=== PATIENT | male | born 1955 | race American Indian/Alaskan Native ===

== ENCOUNTER 2019-07-01 15:22 | Emergency (ER) | payer MEDICARE ==
[~2019-07-01 15:22] MED LIST: AMIDATE IV ONE; ZEMURON IV ONE
[2019-07-01] MEDS ORDERED: NACL 0.9% 1000 ML IV ONE (15:34)
[2019-07-01] MEDS ORDERED: SUBLIMAZE IV PRN (15:37)
[2019-07-01] MEDS ORDERED: ARTIFICIAL TEARS OPHTH OINT OU PRN (15:37)
[2019-07-01] MEDS ORDERED: VASELINE LIP THERAPY TP PRN (15:37)
[2019-07-01] MEDS ORDERED: ATIVAN IV PRN (15:37)
--- NOTE | 2019-07-01 15:50 | Emergency Department Report ---
ED General Adult HPI - General Chief complaint: Altered Mental Status Stated complaint: UNK Time Seen by Provider: 07/01/19 15:34 Source: EMS ( EMS documentation not available at time of chart dictation ) Mode of arrival: Stretcher Limitations: Altered Mental Status, Physical Limitation - History of Present Illness Initial comments: History entirely obtained from verbal report from nursing team. The patient is reportedly a 64-year-old -Italian gentleman, on dialysis, upper extremities dialysis access, history of stroke (we do not know when, and we do not know with deficits). 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 His exact last known well time is not known. Patient had approximately 300 mL of coffee-ground emesis. I was called to emergently evaluate the patient for emesis, altered mental status, and inability to protect airway. The patient had a finger stick of 172. Upon initial evaluation, the patient was altered, hypoxic to 82% on nonrebreather, and actively vomiting. Patient required emergent intubation. Please see the intubation note for details of the procedure. Postintubation, patient's blood pressure dropped to the 70s, and now is in the 120s. He was found to have a core temperature 95.2 degrees. Simultaneous cold sepsis and code stroke are called overhead. Given the patient's emergent presentation, he will need emergent and expedient diagnostics to exclude potentially time sensitive diagnoses. Therefore, he will be emergently and administratively consented by myself for noncontrast CT scan of the brain, an emergency CT angiogram of the head and neck to exclude large vessel occlusion, and CT scan of the abdomen and pelvis to exclude acute surgical emergency. The meantime, he'll be started on active patient rewarming, he'll be given desmopressin, Protonix, and ceftriaxone. As his diagnostics results, we will further tailor his management. The patient is currently being evaluated by stroke neurology, Dr. Prater We will also discussed with nephrology on-call, critical care, and gastroenterology. -: This afternoon Quality: other Consistency: other Improves with: other Worsens with: other - Related Data Allergies Allergy/AdvReac Type Severity Reaction Status Date / Time No Known Allergies Allergy Unverified 07/01/19 17:14 ED Review of Systems ROS: Stated complaint: UNK Other details as noted in HPI Comment: Unobtainable due to pts medical conditions ED Physical Exam - General Limitations: Altered Mental Status, Physical Limitation General appearance: obtunded - Head Head exam: Present: atraumatic, normocephalic - Eye Eye exam: Present: PERRL - ENT ENT exam: Present: mucous membranes dry, normal external ear exam, other (copious secretions noted in the oropharynx, coffee-ground emesis noted in the oropharynx) - Neck Neck exam: Present: normal inspection - Respiratory Respiratory exam: Present: respiratory distress, rhonchi - Cardiovascular Cardiovascular Exam: Present: normal rhythm, tachycardia, normal heart sounds. Absent: bradycardia, irregular rhythm, systolic murmur, diastolic murmur - GI/Abdominal GI/Abdominal exam: Present: soft. Absent: distended, tenderness, guarding, rebound, rigid, pulsatile mass - Rectal Rectal exam: Present: normal inspection, normal rectal tone. Absent: black stool, bloody stool - exam: Present: normal inspection - Extremities Exam Extremities exam: Present: normal inspection (2+ pulses noted in the bilateral upper, lower extremities. There is no long bone tenderness. Musculoskeletal compartments are soft. The pelvis is stable.), other (there is a left upper extremity fistula, with no redness, pus or streaking) - Back Exam Back exam: Absent: tenderness, CVA tenderness (R), CVA tenderness (L), paraspinal tenderness, vertebral tenderness - Neurological Exam Neurological exam: Present: altered, other (prior to intubation, patient noted to be clenching bilateral upper, lower extremities, and is actively retching. A detailed neurologic examination is not possible secondary to altered mental status and active emesis) - Psychiatric Psychiatric exam: Present: other (patient is nonverbal and altered) - Skin Skin exam: Present: dry ED Course Vital Signs 07/01/19 07/01/19 07/01/19 15:25 15:45 16:15 Temperature 95.2 F L Pulse Rate 71 99 H 81 Respiratory 19 16 Rate Blood Pressure 119/68 152/79 Blood Pressure 142/64 159/81 [Right] O2 Sat by Pulse 94 100 100 Oximetry 07/01/19 07/01/19 07/01/19 16:30 17:00 17:07 Temperature Pulse Rate 78 73 73 Respiratory 27 H 23 Rate Blood Pressure 126/72 Blood Pressure 130/76 126/72 [Right] O2 Sat by Pulse 100 100 100 Oximetry 07/01/19 17:15 Temperature Pulse Rate 76 Respiratory 15 Rate Blood Pressure Blood Pressure 129/67 [Right] O2 Sat by Pulse 100 Oximetry - Reevaluation(s) Reevaluation #1: 07/01/19 16:04 Differential diagnosis including but not limited to: Dialysis disequilibrium syndrome, intracranial hemorrhage, stroke, toxic encephalopathy, metabolic encephalopathy, bacteremia, pneumonia, meningitis, upper GI bleed, Tabatha-Stoner tear 07/01/19 16:06 Assessment and plan: 64-year-old gentleman with evidence of active upper GI b leed, altered mental status, coffee-ground emesis, hypothermia, requires placement of endotracheal tube and mechanical ventilation. We will ventilate the patient with a long protective strategy, treat empirically with vancomycin, ceftriaxone, Decadron, given aggressive IV fluids, desmopressin, Protonix, and reassess after data points. 07/01/19 16:13 07/01/19 16:19 Change in plans: CT scan shows large bilateral subdural bleeds, right greater than left, with evidence of shift, and herniation. This requires evaluation by the neurosurgical team, and neurology critical care, neither of which are available at this hospital. Given obvious CT scan findings, we will cancel CT angiogram head and neck, and CT scan abdomen pelvis. Addition, this is very unlikely to be sepsis at this time, so we will cancel IV fluids, and we will cancel antibiotic therapy. Nursing team is updated. We will continue Protonix, desmopressin, initiate Keppra therapy, and also initiate osmotic therapy, with mannitol. We will discuss with neurology critical care regarding hypertonic saline. At this time, there are no family or friends available for collateral information. Unfortunately, at this time, prognosis is quite poor. Reevaluation #2: 07/01/19 16:25 The patient is accepted to [facility] by neurology critical care, Dr. Nayeli Glass ,. Recommends mannitol 0.5 mg/kg IV rather than 1 mg/kg IV. Hypertonic saline is not recommended. We will attempt to arrange for emergent flights transfer. The patient has an emergency medical condition which cannot be definitively managed at this hospital, as we do not have neurology, neurology critical care, neurosurgery available for consultation. At this point in time, there is no family member or next of kin available for consent for transfer. The patient has an emergent condition that requires specialty services not available, and has a time sensitive diagnosis. 07/01/19 16:28 Reevaluation #3: 07/01/19 16:49 X-ray the chest suggests aspiration pneumonitis. Antibiotics ordered. Nursing team updated. Reevaluation #4: 07/01/19 23:06 Elevated lactic acid is reviewed and appreciated. We withheld aggressive IV fluid bolus given intracranial bleeding, as additional IV fluids may have worsened clinical status of bleed. Appreciate that the patient meets systemic inflammatory response syndrome criteria, however, this is likely secondary to significant intracranial hemorrhage causing impending herniation, the patient will not benefit from aggressive fluid bolus at this time given his current illness. - EJ/Peripheral Line Neck L Time Out Performed: Yes Indications: multiple IV sites needed Skin Cleansed in Sterile Fashion: Yes Size: 16 Dressing Placed: Tegaderm Patient Tolerated Procedure: well - Intubation Time Out Performed: Yes Sedative: Etomidate Mg Given: 20 Paralytic: Rocuronium Mg Given: 100 Laryngoscope: Vimal Size: 3 Assist Device Used: Bougie ET Tube Size: 7.5 Tube Secured Depth (cm): 23 Tube Secured Location: teeth Tube Placement Confirmation: visualized tube passing t, equal breath sounds bilat, no breath sounds over epi, confirmation by capnometr Patient Tolerated Procedure: well Intubation Complications: difficult intubation Additional Comments: Patient placed on nonrebreather and nasal cannula, 15 L/m. Airway aggressively suctioned. Towel rolls placed underneath shoulders to overlying ear to sternal notch, direct laryngoscopy performed, found to be very anterior, however, excellent visualization of epiglottis. Bougie catheter is placed, and palpable tracheal clicks are appreciated, and a 7.5 endotracheal tube was subsequently inserted over the bougie catheter, and placement is then confirmed by direct visualization with the laryngoscopy, as well as appropriate capnography color change, and breath sounds bilaterally. ED Medical Decision Making - Lab Data Result diagrams: 07/01/19 Unknown 07/01/19 15:35 Lab Results 07/01/19 07/01/19 07/01/19 Range/Units 15:35 Unknown Unknown WBC 6.9 (4.5-11.0) K/mm3 RBC 2.73 L (3.65-5.03) M/mm3 Hgb 9.2 L (11.8-15.2) gm/dl Hct 26.6 L (35.5-45.6) % MCV 98 H (84-94) fl MCH 34 H (28-32) pg MCHC 35 H (32-34) % RDW 15.2 (13.2-15.2) % Plt Count 204 (140-440) K/mm3 Lymph % (Auto) 6.7 L (13.4-35.0) % [place]alle % (Auto) 4.1 (0.0-7.3) % Eos % (Auto) 0.0 (0.0-4.3) % Baso % (Auto) 0.1 (0.0-1.8) % Lymph # 0.5 L (1.2-5.4) K/mm3 Lasalle # 0.3 (0.0-0.8) K/mm3 Eos # 0.0 (0.0-0.4) K/mm3 Baso # 0.0 (0.0-0.1) K/mm3 Seg Neutrophils % 89.1 H (40.0-70.0) % Seg Neutrophils # 6.1 (1.8-7.7) K/mm3 PT 13.9 (12.2-14.9) Sec. INR 1.10 (0.87-1.13) APTT 30.7 (24.2-36.6) Sec. Sodium 136 L (137-145) mmol/L Potassium 3.6 (3.6-5.0) mmol/L Chloride 95.4 L (98-107) mmol/L Carbon Dioxide 17 L (22-30) mmol/L Anion Gap 27 mmol/L BUN 10 (9-20) mg/dL Creatinine 2.2 H (0.8-1.5) mg/dL Estimated GFR 37 ml/min BUN/Creatinine Ratio 5 % Glucose 167 H (75-100) mg/dL Calcium 8.3 L (8.4-10.2) mg/dL Total Bilirubin 1.60 H (0.1-1.2) mg/dL AST 21 (5-40) units/L ALT 16 (7-56) units/L Alkaline Phosphatase 92 (35-129) units/L CK-MB (CK-2) 1.3 (0.0-4.0) ng/mL Troponin T 0.029 (0.00-0.029) ng/mL Total Protein 7.3 (6.3-8.2) g/dL Albumin 3.9 (3.9-5) g/dL Albumin/Globulin Ratio 1.1 % - EKG Data -: EKG Interpreted by Md - EKG Data When compared to previous EKG there are: previous EKG unavailable 07/01/19 16:29 There is no prior EKG available for comparison. This shows a sinus tachycardia, 111 bpm, left ventricular hypertrophy, motion artifact, QTC is prolonged, there is no prior for comparison, the EKG is not consistent with ST elevation myocardial infarction. - Radiology Data Radiology results: report reviewed, image reviewed Print Report Referring Physician: EMILI MINER Patient Name: JEYSON BALL Date of : 1955 Sex: Male Report Date: 2019-07-01 Report Status: [place] [address] Cat Scan Report Signed Patient: JEYSON BALL MR#: [id number] : 1955 Acct:[id number] Age/Sex: 64 / M ADM Date: 07/01/19 Loc: ED Attending Dr: Ordering Physician: EMILI MINER MD Date of Service: 07/01/19 Procedure(s): CT head/brain wo con Accession Number(s): [id number] cc: EMILI MINER MD CT head/brain wo con INDICATION / CLINICAL INFORMATION: 64 years Male; Stroke symptoms. TECHNIQUE: Thin cut axial images obtained to the brain. Sagittal and coronal reconstructions performed. All CT scans at this location are performed using CT dose reduction for ALARA by means of automated exposure control. COMPARISON: Prior - 02/12/2019 FINDINGS: Significant, bilateral subdural hematomas are seen - right greater than left. Findings on the left measure up to 3.9 cm in maximum thickness. There is significant right to left midline shift- approximately 2.2 cm. There is entrapment of the left lateral ventricle. There is near complete loss of karimi/white differentiation in the right cerebral hemisphere and significant loss of karimi/white differentiation in portions of the left cerebral hemisphere. Uncal herniation is suggested - suprasellar cistern is not well visualized. Because of cerebral edema, there is downward transtentorial herniation suggested as well. The brainstem is displaced inferiorly and towards the left. There may be blood products in the fourth ventricle. IMPRESSION: 1. Significant, bilateral subdural collections as described above, with significant left to right midline shift. There are findings concerning for herniation and I am concerned about significant cerebral edema. The exam was completed on 07/01/2019 1536 Eastern time. The exam was reviewed at 1600 Eastern time and Serotoff was notified at approximately 1605. Signer Name: Josh Yost MD, III Signed: 07/01/2019 4:23 PM Workstation Name: [id number] Transcribed By: HR Dictated By: Josh Yost MD Electronically Authenticated By: Josh Yost MD Signed Date/Time: 07/01/19 1623 Critical Care Time: Yes Critical care time in (mins) excluding proc time.: 75 Critical care attestation.: If time is entered above; I have spent that time in minutes in the direct care of this critically ill patient, excluding procedure time. ED Disposition Clinical Impression: Intracranial hemorrhage, End stage renal disease, Respiratory failure Disposition: DC/TX-70 ANOTHER TYPE HLTHCARE Is pt being admited?: No Does the pt Need Aspirin: No Condition: Critical Referrals: PRIMARY CARE, [Primary Care Provider] - 3-5 Days
[2019-07-01] MEDS ORDERED: DDAVP 20 MCG in NACL 0.9% 50 ML IV ONE (15:52)
[2019-07-01] MEDS ORDERED: PROTONIX IV ONE (15:52)
[2019-07-01] MEDS ORDERED: ATIVAN 100 MG in NACL 0.9% 50 ML, VIAFLEX EMPTY CONTAINER 0 ML IV SCH (16:00)
[2019-07-01] MEDS ORDERED: ROCEPHIN/NS 2 GM/100 ML 2 GM/100 ML BAG IV SCH (16:00)
[2019-07-01] MEDS ORDERED: fentaNYL DRIP Premix 2,000 MCG/100 ML BAG IV SCH (16:00)
[2019-07-01] MEDS ORDERED: VANCOMYCIN IV ONE (16:05)
[2019-07-01] MEDS ORDERED: DECADRON IV ONE (16:05)
[2019-07-01] MEDS ORDERED: NACL 0.9% IV ONE (16:05)
[2019-07-01 16:10] LABS: Basophils % (Auto) 0.1 % (0.0-1.8); Hematocrit 26.6 % (35.5-45.6); Hemoglobin 9.2 gm/dl (11.8-15.2); Lymphocytes # (Auto) 0.5 K/mm3 (1.2-5.4); Lymphocytes % (Auto) 6.7 % (13.4-35.0); Mean Corpuscular HGB Conc 35 % (32-34); Mean Corpuscular Volume 98 fl (84-94); Monocytes # (Auto) 0.3 K/mm3 (0.0-0.8); Monocytes % (Auto) 4.1 % (0.0-7.3); Platelet Count 204 K/mm3 (140-440); Red Blood Count 2.73 M/mm3 (3.65-5.03); Red Cell Distribution Width 15.2 % (13.2-15.2)
[2019-07-01] MEDS ORDERED: KEPPRA 1,000 MG/NS 0.75% 100ML 1,000 MG/100 ML BAG IV ONE (16:15)
[2019-07-01] MEDS ORDERED: OSMITROL 20% IV ONE ×3 (16:15→16:45)
--- NOTE | 2019-07-01 16:17 | Emergency Department Report ---
ED General Adult HPI - General Chief complaint: Altered Mental Status Stated complaint: UNK Time Seen by Provider: 07/01/19 15:34 Source: EMS ( EMS documentation not available at time of chart dictation ) Mode of arrival: Stretcher Limitations: Altered Mental Status, Physical Limitation - History of Present Illness Initial comments: [employer] [facility] Date of Service: 07/01/2019 15:38:21 Impression: Right large subdural Hematoma Comments: Right subdural HOB elevate Intubate Keppra 1000 mg IV x 1 Mechanism of Stroke: Possible Thromboembolic Metrics: Last Known Well: Unknown [employer] Notification Time: 07/01/2019 15:36:54 Arrival Time: 07/01/2019 15:00:00 Stamp Time: 07/01/2019 15:38:21 Time First Login Attempt: 07/01/2019 15:43:44 Video Start Time: 07/01/2019 15:43:44 Symptoms: AMS, Hypothermia, NIHSS Start Assessment Time: 07/01/2019 15:46:22 Patient is not a candidate for tPA. Patient was not deemed candidate for tPA thrombolytics because of unknown, offee ground emesis. Video End Time: 07/01/2019 16:07:59 CT head showed no acute hemorrhage or acute core infarct. ER physician notified of the decision on thrombolytics management. Our recommendations are outlined below. Recommendations: Antiplatelet Therapy Recommended Recommended Scan: MRI Head Therapies: Physical Therapy, Occupational Therapy, Speech Therapy Assessment When Applicable Dysphaghia Screen: Swallow Evaluation, Bedside DVT prophylaxis: Choice of Primary Team Disposition: Sign Out Sign Out: Discussed with Emergency Department Provider History of Present Illness: Patient is a 64 years old Male. Patient was brought by EMS for symptoms of AMS, Hypothermia, Pt ias a dialysis pt, , unknown past history, completed dialysis, with hx of stroke. He completed dialysis, and became unresponsive, and started to vomit coffee grounds. Hypothermic, and unkown last known well. CT head showed no acute hemorrhage or acute core infarct. Last seen normal was beyond 4.5 hours of presentation. There is no history of hemorrhagic complications or intracranial hemorrhage. Examination: 1A: Level of Consciousness - Postures or Unresponsive + 3 1B: Ask Month and Age - Dysarthric/Intubated/ Trauma/Language Barrier + 1 1C: Blink Eyes & Squeeze Hands - Performs 0 Tasks + 2 2: Test Horizontal Extraocular Movements - Normal + 0 3: Test Visual Kolb - No Visual Loss + 0 4: Test Facial Palsy (Use Grimace if Obtunded) - Normal symmetry + 0 5A: Test Left Arm Motor Drift - No Drift for 10 Seconds + 0 5B: Test Right Arm Motor Drift - No Drift for 10 Seconds + 0 6A: Test Left Leg Motor Drift - No Drift for 5 Seconds + 0 6B: Test Right Leg Motor Drift - No Drift for 5 Seconds + 0 7: Test Limb Ataxia (FNF/Heel-Thao) - No Ataxia + 0 8: Test Sensation - Normal; No sensory loss + 0 9: Test Language/Aphasia - Coma/Unresponsive + 3 10: Test Dysarthria - Normal + 0 11: Test Extinction/Inattention - No abnormality + 0 NIHSS Score: 9 Patient was informed the Neurology Consult would happen via TeleHealth consult by way of interactive audio and video telecommunications and consented to receiving care in this manner. Due to the immediate potential for life-threatening deterioration due to underlying acute neurologic illness, I spent 35 minutes providing critical care. This time includes time for face to face visit via telemedicine, review of medical records, imaging studies and discussion of findings with providers, the patient and/or family. Dr Galindo Prater [employer] Complaint: stroke Quality: other Improves with: other Worsens with: other ED Review of Systems ROS: Stated complaint: UNK Other details as noted in HPI ED Physical Exam - General Limitations: Altered Mental Status, Physical Limitation General appearance: obtunded ED Medical Decision Making - Lab Data Result diagrams: 07/01/19 Unknown Critical care attestation.: If time is entered above; I have spent that time in minutes in the direct care of this critically ill patient, excluding procedure time. ED Disposition Condition: Stable Referrals: PRIMARY CARE, [Primary Care Provider] - 3-5 Days
[2019-07-01 16:22] LABS: INR 1.1 (0.87-1.13)
[2019-07-01 16:24] LABS: Partial Thromboplastin Time 30.7 Sec. (24.2-36.6)
[2019-07-01] MEDS ORDERED: OSMITROL 20% IV STA (16:24)
[2019-07-01 16:27] LABS: Creatine Kinase MB 1.3 ng/mL (0.0-4.0)
--- NOTE | 2019-07-01 16:27 | Cat Scan Report ---
CT head/brain wo con INDICATION / CLINICAL INFORMATION: 64 years Male; Stroke symptoms. TECHNIQUE: Thin cut axial images obtained to the brain. Sagittal and coronal reconstructions performed. All CT s cans at this location are performed using CT dose reduction for ALARA by means of automated exposure control. COMPARISON: Prior - 02/12/2019 FINDINGS: Significant, bilateral subdural hematomas are seen - right greater than left. Findings on the left me asure up to 3.9 cm in maximum thickness. There is significant right to left midline shift-approximate ly 2.2 cm. There is entrapment of the left lateral ventricle. There is near complete loss of karimi/white differentiation in the right cerebral hemisphere and signif icant loss of karimi/white differentiation in portions of the left cerebral hemisphere. Uncal herniatio n is suggested - suprasellar cistern is not well visualized. Because of cerebral edema, there is down daniel transtentorial herniation suggested as well. The brainstem is displaced inferiorly and towards t he left. There may be blood products in the fourth ventricle. IMPRESSION: 1. Significant, bilateral subdural collections as described above, with significant left to right mid line shift. There are findings concerning for herniation and I am concerned about significant cerebra l edema. The exam was completed on 07/01/2019 1536 Eastern time. The exam was reviewed at 1600 Eastern time an candis Leioff was notified at approximately 1605. Signer Name: Josh Yost MD, III Signed: 07/01/2019 4:23 PM Workstation Name: [id number]
[2019-07-01 16:29] LABS: Albumin 3.9 g/dL (3.9-5); Calcium 8.3 mg/dL (8.4-10.2)
[2019-07-01 16:38] LABS: INR 1.33 (0.87-1.13)
--- NOTE | 2019-07-01 16:47 | XRay Report ---
CHEST 1 VIEW INDICATION: ETT placement. COMPARISON: 02/12/2019. FINDINGS: Support devices: Endotracheal tube tip at the level of the clavicles. Nasogastric tube is in the stom ach in satisfactory position. Heart: Normal. Lungs/Pleura: No pneumothorax or significant effusion. There is patchy airspace disease within the ri ght mid to lower lung which may be infectious in etiology. Left lung is clear. IMPRESSION: 1. Tubes are in satisfactory position, as above. 2. Right mid to lower lung opacities are concerning for pneumonia. Signer Name: Jose Mcdonald MD Signed: 07/01/2019 4:43 PM Workstation Name: [id number]
[2019-07-01 16:48] LABS: Partial Thromboplastin Time 29.1 Sec. (24.2-36.6); Thrombin Time < 13.0 Sec. (15.1-19.6)
[2019-07-01] MEDS ORDERED: ZOSYN/NS 4.5GM/100ML 4.5 GM/100 ML VIAL IV ONE (16:48)
[2019-07-01] MEDS ORDERED: PROTONIX 80 MG in NACL 0.9% 100 ML IV SCH (17:00)
[2019-07-01] MEDS ORDERED: AMIDATE IV ONE (17:38)
[2019-07-01] MEDS ORDERED: ZEMURON IV ONE (17:39)
[2019-07-01 18:06] VITALS: BP 129/67
== END 2019-07-01 17:50 | disposition other institution (70) ==
LOC: ED 15:22
DX: N18.6 End stage renal disease (principal); J96.90 Respiratory failure, unspecified, unspecified whether with hypoxia or hypercapnia; I61.9 Nontraumatic intracerebral hemorrhage, unspecified
CPT/HCPCS: 31500; 36415; 36569; 70450; 71045; 80053; 82140; 82550; 82553; 82803; 82962; 83735; 84484; 85025; 85610; 85670; 85730; 86850; 86900; 86901; 87040; 87205; 93005; 93010; 96365; 96368; 96375; 99291; 99292; C9113; J1100; J1953; J2060; J2150; J2543; J2597; J3370; J7030; J7040; 80320; 94002; G0480